=== PATIENT | male | born 1990 | race Caucasian/White ===

== ENCOUNTER 2021-08-10 14:26 | Emergency (ER) | payer OTHER ==
[2021-08-10 14:46] VITALS: BP 120/79; PULSE 73; TEMP 97.9; BMI 25.0
[2021-08-10] MEDS ORDERED: KETOROLAC TROMETHAMINE 30 MG/1 ML VIAL IM ONE (16:06)
== END 2021-08-10 17:00 | disposition home or self-care (01) ==
LOC: JER 14:26
PROC: 3E0233Z Introduction of Anti-inflammatory into Muscle, Percutaneous Approach (ICD-10-PCS; principal; 2021-08-10)
DX: M54.2 Cervicalgia (principal)
CPT/HCPCS: 72050-TC-FY; 96372; 99284-25

== ENCOUNTER 2021-09-09 09:47 | Emergency (ER) | payer OTHER ==
[2021-09-09 10:00] VITALS: BP 129/79; PULSE 82; TEMP 97.8; BMI 26.6
[2021-09-09] MEDS ORDERED: IBUPROFEN 600 MG TABLET (FP) PO ONE ×2 (12:04→12:07)
== END 2021-09-09 12:19 | disposition home or self-care (01) ==
LOC: JERFT 09:47
DX: M54.2 Cervicalgia (principal)
CPT/HCPCS: 99283-25

== ENCOUNTER 2022-04-09 10:48 | Emergency (ER) | payer OTHER ==
[2022-04-09 10:59] VITALS: BP 130/85; PULSE 109; TEMP 98.1; BMI 24.3
[2022-04-09] MEDS ORDERED: KETOROLAC TROMETHAMINE 30 MG/1 ML VIAL IM ONE (11:57)
[2022-04-09] MEDS ORDERED: KETOROLAC TROMETHAMINE 30 MG/1 ML VIAL ONE (12:18)
== END 2022-04-09 13:38 | disposition home or self-care (01) ==
LOC: JERFT 10:48
PROC: 3E0233Z Introduction of Anti-inflammatory into Muscle, Percutaneous Approach (ICD-10-PCS; principal; 2022-04-09)
DX: M77.01 Medial epicondylitis, right elbow (principal)
CPT/HCPCS: 73070-TC-RT-FY; 73090-TC-RT-FY; 99284-25

== ENCOUNTER 2022-08-23 09:05 | Emergency (ER) | payer OTHER ==
[2022-08-23 09:09] VITALS: BP 115/82; PULSE 91; RESP 18; TEMP 97.9; BMI 25.8
[2022-08-23] MEDS ORDERED: ONDANSETRON 4 MG/2 ML VIAL IVPUSH ONE (10:08)
[2022-08-23] MEDS ORDERED: SODIUM CHLORIDE 0.9% 500 ML INFUS.BAG IV ONE ×2 (10:08→12:43)
[2022-08-23] MEDS ORDERED: ONDANSETRON 4 MG/2 ML VIAL ONE (10:53)
[2022-08-23 11:09] LABS: BASO % 0.9 % (0-2.0); EOS % 1.6 % (0-4.5); HEMATOCRIT 43.5 % (35.4-49); MCH 32.2 pg (25.7-33.7); MCHC 34.5 g/dl (32.0-35.9); MEAN CELL VOLUME 93.3 fl (80-96); MEAN PLT VOLUME 7.7 fl (7.5-11.1); MONO % 8.9 % (3.8-10.2); NEUT % 43.6 % (42.8-82.8); PLATELET COUNT 320 10^3/uL (134-434); RBC 4.66 M/mm3 (4.00-5.60); RDW 13.2 % (11.9-15.9); WHITE BLOOD COUNT 5.5 K/mm3 (4.0-10.0)
[2022-08-23 11:10] LABS: URINE APPEARANCE CLEAR; URINE BILIRUBIN NEGATIVE (NEGATIVE); URINE COLOR YELLOW; URINE GLUCOSE (UA) NEGATIVE (NEGATIVE); URINE KETONE NEGATIVE (NEGATIVE); URINE LEUK ESTERASE NEGATIVE (NEGATIVE); URINE NITRITE NEGATIVE (NEGATIVE); URINE PROTEIN NEGATIVE (NEGATIVE); URINE UROBILINOGEN 0.2 mg/dL (0.2-1.0)
[2022-08-23 11:31] LABS: ALBUMIN 3.9 g/dl (3.4-5.0); CALCIUM 9.5 mg/dL (8.5-10.1); MAGNESIUM 2.1 mg/dL (1.8-2.4)
[2022-08-23 11:32] LABS: BLOOD UREA NITROGEN 13.6 mg/dL (7-18)
[2022-08-23 11:34] LABS: CREATININE 0.9 mg/dL (0.55-1.3)
[2022-08-23 11:36] LABS: BILIRUBIN,TOTAL 0.7 mg/dL (0.2-1); TOT PROT 7.7 g/dl (6.4-8.2)
[2022-08-23 16:36] LABS: HIV INTERPRETATION NEGATIVE (NEGATIVE)
== END 2022-08-23 12:59 | disposition home or self-care (01) ==
LOC: JER 09:05
PROC: 3E033NZ Introduction of Analgesics, Hypnotics, Sedatives into Peripheral Vein, Percutaneous Approach (ICD-10-PCS; principal; 2022-08-23)
DX: R19.7 Diarrhea, unspecified (principal)
CPT/HCPCS: 36415; 76705-TC; 80053; 81003; 83690; 83735; 85025; 87389; 99284-25